=== PATIENT | female | born 1960 | race Caucasian/White ===

== ENCOUNTER 2017-09-24 08:29 | Outpatient (CLI) | payer BC | END 2017-09-24 08:30 | disposition home or self-care (01) | LOC: BICMAMMO 08:29 | PROVIDERS: ATTEND Obstetrics & Gynecology | DX: Z12.31 Encounter for screening mammogram for malignant neoplasm of breast (principal) | CPT/HCPCS: 77063; 77067 ==

== ENCOUNTER 2018-06-05 11:04 | Day surgery (SDC) | payer BC ==
[2018-06-04 08:53] VITALS: BMI 26.2
[2018-06-05] MEDS ORDERED: Oxymetazoline HCl 0.05% ( 15 ML ) ONE ×2 (12:59→14:46)
[2018-06-05 13:16] LABS: BHCG - Serum Negative (NEGATIVE); Pregs Control Background? CLEAR/WHITE (CLR/WHITE); Pregs Control Bar Appear? YES (CONTROL BAR)
[2018-06-05] MEDS ORDERED: Bacitracin Zinc Ointment 30 gm TUBE ONE (14:46)
[2018-06-05] MEDS ORDERED: Lidocaine 1% w/Epinephrine 1:100K 20 ML VIAL ONE (14:46)
[2018-06-05] MEDS ORDERED: Fentanyl 100 MCG/2 ML VIAL ONE ×2 (14:51→15:39)
[2018-06-05] MEDS ORDERED: PROPOFOL 200 MG/20 ML VIAL ONE (15:44)
[2018-06-05] MEDS ORDERED: Rocuronium Bromide 10 MG/ML (10ML VIAL) ONE (15:44)
[2018-06-05] MEDS ORDERED: Lidocaine 1% PF 5 ML VIAL ONE (15:44)
[2018-06-05] MEDS ORDERED: Glycopyrrolate 0.2 MG/ML 5 ML SYRINGE ONE (15:44)
[2018-06-05] MEDS ORDERED: Ondansetron PF 4 MG/2 ML Vial ONE (15:44)
[2018-06-05] MEDS ORDERED: hydrALAZINE 20 MG/ML VIAL ONE (16:14)
[2018-06-05] MEDS ORDERED: HYDROcodone/Acetaminophen 5/325 mg Tablet ONE (17:26)
--- NOTE | 2018-06-06 07:50 | EKG ---
Test Reason : PREOP Blood Pressure : / mmHG Vent. Rate : 061 BPM Atrial Rate : 061 BPM P-R Int : 154 ms QRS Dur : 080 ms QT Int : 438 ms P-R-T Axes : 048 -02 025 degrees QTc Int : 440 ms Normal sinus rhythm Normal ECG When compared with ECG of 26-NOV-2012 13:07, No significant change was found Confirmed by MARGARITO FLOYD ([id number]) on 06/06/2018 7:49:51 AM Referred By: RICHIE Confirmed By:MARGARITO FLOYD
--- NOTE | 2018-06-06 16:06 | OP ---
DATE OF PROCEDURE: 06/05/2018 PREOPERATIVE DIAGNOSES: 1. Chronic rhinosinusitis. 2. Nasal obstruction. POSTOPERATIVE DIAGNOSES: 1. Chronic rhinosinusitis. 2. Nasal obstruction. PROCEDURES PERFORMED: 1. Bilateral endoscopic sinus surgery with maxillary antrostomies. 2. Bilateral endoscopic sinus surgery with frontal sinusotomy. 3. Bilateral endoscopic sinus surgery with sphenoidotomy. ESTIMATED BLOOD LOSS: Less than 5 mL. COMPLICATIONS: None. ANESTHESIA: GETA. INDICATIONS FOR PROCEDURE: The patient has a history of von Willebrand disease. Dr. Hathaway was consulted for preoperative clearance and preoperative DDAVP was given. The patient had done previous submental liposuction without any bleeding postoperatively, without any regimen prophylactically. Risks, benefits, and alternatives for this procedure were discussed with the patient. She is eager to proceed. DESCRIPTION OF PROCEDURE: The patient was taken to the operating room, placed on operating table with general endotracheal anesthesia was obtained by the anesthesia staff. Following this, Afrin pledgets were placed in the nasal cavity and she was prepped and draped in standard surgical fashion for nasal procedure. Following this, Afrin pledgets were removed. A 0-degree endoscope was then advanced into the nasal cavity, 1% lidocaine with 1:100,000 epinephrine was injected into the inferior turbinates, middle turbinates, lateral nasal wall, and the posterior nasal wall. Following this, a Paul tip suction was advanced medially to the middle turbinates and the middle turbinate was laterally fractured with a [place] elevator. The attachments of the superior turbinate to the posterior nasal wall was identified using a ball-ended probe, the natural sphenoid sinus, which was nearly completely stenotic, was punctured bilaterally. Following this, the sphenoid sinus ostia was dilated bilaterally to approximately 8 mm. Following this, the middle turbinates were gently medialized with a [place] elevator and the uncinate process was identified. The uncinate process was gently and anteriorly fractured with a ball-ended probe. Following this, the natural maxillary sinus ostia was identified. With a ball-ended probe, it was gently widened and dilated bilaterally. Following this, the 90-degree frontal sinus probe was transilluminated with the light wire and transcutaneous illumination was used to guide and direct attention towards the frontal sinus ostia. Transcutaneous illumination of the frontal sinus was obtained using a frontal sinus probe prior to dilating the frontal sinus using the curved suction device and sinuplasty device. Following this, the nasal cavity was irrigated. The patient tolerated the procedure well. Job ID: [id number]
== END 2018-06-05 17:55 | disposition home or self-care (01) ==
LOC: SDC 11:04
PROVIDERS: ATTEND Otolaryngology Plastic Surgery within the Head & Neck
PROC: 099R8ZZ Drainage of Left Maxillary Sinus, Via Natural or Artificial Opening Endoscopic (ICD-10-PCS; principal; 2018-06-05)
PROC: 09QS8ZZ Repair Right Frontal Sinus, Via Natural or Artificial Opening Endoscopic (ICD-10-PCS; principal; 2018-06-05)
PROC: 09CW8ZZ Extirpation of Matter from Right Sphenoid Sinus, Via Natural or Artificial Opening Endoscopic (ICD-10-PCS; principal; 2018-06-05)
PROC: 09QT8ZZ Repair Left Frontal Sinus, Via Natural or Artificial Opening Endoscopic (ICD-10-PCS; principal; 2018-06-05)
PROC: 099Q8ZZ Drainage of Right Maxillary Sinus, Via Natural or Artificial Opening Endoscopic (ICD-10-PCS; principal; 2018-06-05)
PROC: 09CX8ZZ Extirpation of Matter from Left Sphenoid Sinus, Via Natural or Artificial Opening Endoscopic (ICD-10-PCS; principal; 2018-06-05)
DX: J32.9 Chronic sinusitis, unspecified (principal); J34.89 Other specified disorders of nose and nasal sinuses; I10 Essential (primary) hypertension; E11.9 Type 2 diabetes mellitus without complications; E78.00 Pure hypercholesterolemia, unspecified; Z90.89 Acquired absence of other organs; Z88.2 Allergy status to sulfonamides; Z88.1 Allergy status to other antibiotic agents; Z79.84 Long term (current) use of oral hypoglycemic drugs; Z79.899 Other long term (current) drug therapy
CPT/HCPCS: 36415; 84703; 85014; 93005; 93010; J0360; J2001; J2405; J2597; J2704; J3010; J3490; J7050

== ENCOUNTER 2018-10-14 10:22 | Outpatient (CLI) | payer BC ==
--- NOTE | 2018-10-14 15:28 | MMO ---
Bilateral MAMMO Bilat Screen [facility]. CLINICAL HISTORY: Patient is 58 years old and is seen for screening. The patient has no family history of breast cancer. The patient has no personal history of cancer. VIEWS: The views performed were: bilateral craniocaudal with tomosynthesis and bilateral mediolateral oblique with tomosynthesis. FILMS COMPARED: The present examination has been compared to prior imaging studies performed at [facility] on 07/29/2014, 08/02/2015, 08/11/2016 and 09/24/2017. MAMMOGRAM FINDINGS: There are scattered fibroglandular densities. There are no suspicious masses, suspicious calcifications, or new areas of architectural distortion. IMPRESSION: THERE IS NO MAMMOGRAPHIC EVIDENCE OF MALIGNANCY. A ROUTINE FOLLOW-UP MAMMOGRAM IN 1 YEAR IS RECOMMENDED. THE RESULTS OF THIS EXAM WERE SENT TO THE PATIENT. ACR BI-RADS Category 1 - Negative MAMMOGRAPHY NOTE: 1. A negative mammogram report should not delay a biopsy if a dominant of clinically suspicious mass is present. 2. Approximately 10% to 15% of breast cancers are not detected by mammography. 3. Adenosis and dense breasts may obscure an underlying neoplasm.
== END 2018-10-14 10:23 | disposition home or self-care (01) ==
LOC: BICMAMMO 10:22
PROVIDERS: ATTEND Family Medicine
DX: Z12.31 Encounter for screening mammogram for malignant neoplasm of breast (principal)
CPT/HCPCS: 77063; 77067